=== PATIENT | male | born 1975 | race Caucasian/White ===

== ENCOUNTER → 2016-12-19 | Outpatient (CLI) | payer OTHER | END | disposition home or self-care (01) | LOC: CVU 08:00 | PROVIDERS: ATTEND Specialist/Technologist, Other Surgical Technologist | DX: M66.272 Spontaneous rupture of extensor tendons, left ankle and foot (principal); M21.371 Foot drop, right foot; M21.372 Foot drop, left foot | CPT/HCPCS: 93922 ==